=== PATIENT | male | born 1975 | race Caucasian/White ===

== ENCOUNTER 2017-08-25 13:06 | Outpatient (CLI) | payer BC | END 2017-08-25 13:07 | disposition home or self-care (01) | LOC: BICRAD 13:06 | PROVIDERS: ATTEND Internal Medicine Cardiovascular Disease | DX: R06.02 Shortness of breath (principal) | CPT/HCPCS: 71046 ==

== ENCOUNTER 2018-10-12 08:59 | Outpatient (CLI) | payer BC ==
--- NOTE | 2018-10-12 09:08 | RAD ---
XR Chest Pa Lat @ [facility] HISTORY: Dyspnea COMPARISON: None FINDINGS: The heart size is normal. The lungs are well expanded without focal areas of consolidation, pneumothorax or pleural effusions. IMPRESSION: No radiographic evidence of acute cardiopulmonary process.
== END 2018-10-12 09:00 | disposition home or self-care (01) ==
LOC: RAD 08:59
PROVIDERS: ATTEND Internal Medicine Critical Care Medicine
DX: R06.00 Dyspnea, unspecified (principal)
CPT/HCPCS: 71046

== ENCOUNTER 2018-10-19 10:30 | Outpatient (CLI) | payer BC ==
--- NOTE | 2018-10-19 11:27 | RAD ---
EXAM: Chest 2 views: HISTORY: Dyspnea COMPARISON: 10/12/2018 FINDINGS: There is a normal-sized cardiomediastinal silhouette. There is no evidence of consolidation, mass, or pleural effusion. The bones are unremarkable. IMPRESSION: No evidence of acute cardiopulmonary disease
--- NOTE | 2018-10-19 12:20 | NM ---
VQ SCAN: HISTORY: Other forms of dyspnea. TECHNIQUE: A ventilation perfusion scan was performed using 19 mCi Xenon 133 by inhalation for the ventilation e xam followed by the intravenous administration of 6 mCi Technetium 99m-MAA For the perfusion scan. FINDINGS: Correlation is made with the chest radiograph of 10/12/2018. Homogeneous tracer distribution is seen in the lung jensen bilaterally on the ventilation perfusion s cans without mismatched, pleural-based wedge-shaped submental or subsegmental perfusion defects. No significant retention is seen on the washout phase of the ventilation study. IMPRESSION: Normal exam. POS: [facility]
== END 2018-10-19 10:31 | disposition home or self-care (01) ==
LOC: NM 10:30
PROVIDERS: ATTEND Internal Medicine Critical Care Medicine
DX: R06.00 Dyspnea, unspecified (principal)
CPT/HCPCS: 71046; 78582; A9540; A9558